=== PATIENT | male | born 1980 | race American Indian/Alaskan Native ===

== ENCOUNTER 2019-06-19 23:40 | Emergency (ER) | payer SELFPAY ==
[2019-06-19] MEDS ORDERED: EPINEPHrine 1:10,000 1 MG/10 ML SYRINGE ONE (23:45)
[2019-06-19] MEDS ORDERED: SODIUM CHLORIDE 0.9% 1000 ML 1,000 ML ONE (23:59)
--- NOTE | 2019-06-20 00:58 | Emergency Department Report ---
ED CPR HPI - General Chief Complaint: Cardiac Arrest/CPR Stated Complaint: CARDIAC ARREST Time Seen by Provider: 06/20/19 00:29 Source: EMS Mode of arrival: Stretcher Limitations: Other - History of Present Illness Initial Comments: 38-year-old male presents to ED in cardiac arrest. EMS states patient had been working on a car at a car shop, and was found by his coworker underneath the car, unresponsive. Patient was last seen normal 30 minutes prior to being found. Upon EMS arrival, patient in asystole. Patient received Epi 4. ACLS in progress for approximately 15 minutes prior to ED arrival. Patient's brother arrived later and reported that he returned from the store and found the patient trapped underneath the vehicle that he was working on. Patient was unresponsive. Patient states brother states he and friend then used a carjack to marcelino the car up off of the patient, and then pulled patient out from underneath. MD Complaint: found unresponsive Bystander CPR Performed: No Initial Findings in the Field: unresponsive, no respirations, no pulse, other rhythm (asystole) ROSC in the Field: No Treatments Prior to Arrival: intubation, chest compressions, epinephrine mgs # (4) - Related Data Allergies Allergy/AdvReac Type Severity Reaction Status Date / Time Unable to Assess Allergy Unverified 06/20/19 03:30 ED Review of Systems ROS: Stated complaint: CARDIAC ARREST Other details as noted in HPI Comment: Unobtainable due to pts medical conditions (cardiac arrest) ED Physical Exam - General Limitations: Other - Head Head exam: Present: other (indentation/superficial laceration present on left side of face) - Eye Pupils: Present: other (fixed an dilated) - ENT ENT exam: Present: other (ET tube in place) - Neck Neck exam: Present: normal inspection - Respiratory Respiratory exam: Present: normal lung sounds bilaterally, other (no spontaneous breaths; no subcutaneous emphysema palpated) - Cardiovascular Cardiovascular Exam: Present: other (no palpable pulse) - GI/Abdominal GI/Abdominal exam: Present: soft. Absent: distended - Extremities Exam Extremities exam: Present: other (abrasion to left lower leg) - Neurological Exam Neurological exam: Present: other (GCS=3) - Skin Skin exam: Present: other (pt appears to have indentations across chest and abdomen, possibly from vehicle being on top of him) ED Medical Decision Making - Radiology Data Radiology results: image reviewed - Medical Decision Making 38-year-old male with crush injury to body from vehicle following on top of him while he was working on it. Patient arrived in cardiac arrest. Initial rhythm was PEA. Patient did regain a pulse a couple of times. We were able to obtain a chest x-ray at one point which appeared to be unremarkable. Patient was transfused 2 units of O- PRBCs due to the trauma. However, ultimately patient did not permanently regain pulses. Time of was called at 00:21. Please see nurse's note for code details. - Differential Diagnosis traumatic arrest Critical care attestation.: If time is entered above; I have spent that time in minutes in the direct care of this critically ill patient, excluding procedure time. ED Disposition Clinical Impression: Cardiac arrest Disposition: DC-20 Is pt being admited?: No Condition: Stable Referrals: PRIMARY CARE, [Primary Care Provider] - 3-5 Days Time of Disposition: 01:23
--- NOTE | 2019-06-20 01:23 | XRay Report ---
CHEST 1 VIEW 06/20/2019 12:01 AM INDICATION / CLINICAL INFORMATION: cardiac arrest, crush injury. COMPARISON: None available. FINDINGS: SUPPORT DEVICES: Endotracheal tube is present with the tip 5.1 cm above the ramirez in expected positi on. HEART / MEDIASTINUM: No significant abnormality. LUNGS / PLEURA: No significant pulmonary or pleural abnormality. No pneumothorax. ADDITIONAL FINDINGS: No acute skeletal abnormality is noted. IMPRESSION: 1. ET tube in expected position. Signer Name: Kory Sanchez MD Signed: 06/20/2019 1:18 AM Workstation Name: [id number]
[2019-06-21] MEDS ORDERED: SODIUM CHLORIDE 0.9% 1000 ML 1,000 ML IV ONE (23:55)
== END 2019-06-20 02:45 ==
LOC: ED 23:40
DX: I46.9 Cardiac arrest, cause unspecified (principal); Z96.22 Myringotomy tube(s) status
CPT/HCPCS: 36430; 71045; 86850; 86900; 86901; 86920; 99285; J0171; J7030; P9016